=== PATIENT | female | born 1945 | race Caucasian/White ===

== ENCOUNTER 2017-11-11 11:03 | Observation (INO) | payer MEDICARE, BC ==
[~2017-11-11] VITALS: Ht 157.5 cm; Wt 47.6 kg
[2017-11-11] VITALS (10 sets, daily range): BP systolic 121–140; BP diastolic 72–92
[~2017-11-11 11:03] MED LIST: Proparacaine 0.5% Opth Soln 15ml RIGHT EYE SCH
[2017-11-11] MEDS ORDERED: Tropicamide 1% Opth 15ml Soln ONE (11:39)
[2017-11-11] MEDS ORDERED: Phenylephrine 2.5% Op 2ml Soln ONE (11:39)
[2017-11-11] MEDS ORDERED: Cyclopentolate 1% Opth Sol 2ml ONE (11:39)
[2017-11-11] MEDS ORDERED: Proparacaine 0.5% Opth Soln 15ml ONE (11:40)
[2017-11-11] MEDS: Phenylephrine 2.5% Op 2ml Soln RIGHT EYE SCH ×3 (11:44→12:11)
[2017-11-11] MEDS: Cyclopentolate 1% Opth Sol 2ml RIGHT EYE SCH ×3 (11:44→12:10)
[2017-11-11] MEDS: Tropicamide 1% Opth 15ml Soln RIGHT EYE SCH ×3 (11:44→12:11)
[2017-11-11] MEDS ORDERED: LEVETIRACETAM1000 MG ORAL (11:55)
[2017-11-11] MEDS ORDERED: TAMSULOSIN HCL0.4 MG ORAL (11:55)
[2017-11-11] MEDS ORDERED: DOCUSATE SODIU100 MG ORAL (11:55)
[2017-11-11] MEDS ORDERED: LISINOPRIL10 MG ORAL (11:55)
[2017-11-11] MEDS ORDERED: AMLODIPINE BESY10 MG ORAL (11:55)
[2017-11-11] MEDS ORDERED: HYDROCODON-ACE1 EA15 ORAL (11:55)
[2017-11-11] MEDS ORDERED: MELATONIN1 M1 SL (11:55)
[2017-11-11] MEDS ORDERED: SENNA8.6 M2 PO (11:55)
[2017-11-11] MEDS ORDERED: Lidocaine 2% MPF 5ml Vial INJ ONE (12:42)
[2017-11-11] MEDS ORDERED: Kenalog-40 1ml Vial ONE (12:42)
[2017-11-11] MEDS ORDERED: EPINEPHrine 1mg/1ml Amp ONE (12:42)
[2017-11-11] MEDS ORDERED: Pred Forte 1% Opth Susp 1ml ONE (12:43)
[2017-11-11] MEDS ORDERED: Goniosol 2.5% Opth Soln - 15ml ONE (12:43)
[2017-11-11] MEDS ORDERED: Povidone-Iodine 5% opth solution ONE (12:44)
[2017-11-11] MEDS ORDERED: BSS 500ml btl ONE (12:44)
[2017-11-11] MEDS ORDERED: Dexamethasone 4mg/ml vial ONE (12:44)
[2017-11-11] MEDS ORDERED: BSS 15ml BTL ONE (12:44)
[2017-11-11] MEDS ORDERED: Acetylcholine Injection (OR) ONE (12:45)
[2017-11-11] MEDS ORDERED: Bupivacaine 0.75% 30ml vial INJ ONE (12:45)
[2017-11-11] MEDS ORDERED: Sodium Hyaluronate 10 mg/ml 0.85ml ONE (12:45)
[2017-11-11] MEDS ORDERED: Tetracaine 0.5% Opth 4ml Soln ONE (12:45)
[2017-11-11] MEDS ORDERED: LR 1000ml ONE (13:00)
[2017-11-11] MEDS ORDERED: NS Irrig 1000ml ONE (13:00)
[2017-11-11] MEDS ORDERED: Sterile Water Irrig 1000ml IRRIG ONE (13:00)
[2017-11-11] MEDS ORDERED: Propofol 200mg/20ml IV ONE ×2 (13:03→13:48)
[2017-11-11] MEDS ORDERED: Midazolam 2mg/2ml Inj ONE (13:03)
[2017-11-11] MEDS ORDERED: Lidocaine 1% MPF 10mg/ml 5ml ONE (13:04)
--- NOTE | 2017-11-11 13:25 | Pre-Procedure Note/Attestation ---
Pre-Procedure Note/Attestation Complete Prior to Procedure Planned Procedure: right Procedure Narrative: VH plan for PPV OD Indications for Procedure Pre-Operative Diagnosis: VH plan for PPV OD Attestation I attest that I discussed the nature of the procedure; its benefits; risks and complications; and alternatives (and the risks and benefits of such alternatives ), prior to the procedure, with the patient (or the patient's legal in home sales representative). I attest that, if there was a reasonable possibility of needing a blood transfusion, the patient (or the patient's legal in home sales representative) was given the [facility] standardized written summary, pursuant to the [place] Blood Safety Act ([place] Health and Safety Code # 1645, as amended). I attest that I re-evaluated the patient just prior to the surgery and that there has been no change in the patient's H&P, except as documented below: Tej Washburn M.D., MD Nov 11, 2017 13:25
--- NOTE | 2017-11-11 13:26 | Operative Note - PDOC ---
Operative Note Operative Note Pre-op Diagnosis: VH plan for PPV OD Procedure: PPV/EL/AFE OD Post-op Diagnosis: Dense VH, possible resolved subretinal hemorrhage, peripheral retinal degeneration (?myopic degeneration), RIGHT EYE Surgeon: Wu Anesthesia: local, MAC Specimen: none Complications: none Condition: stable Estimated Blood Loss: minimal Drains: none Implant(s) used?: No Indications for Procedure Indications for the procedure: The patient has vision loss due bilateral vitreous hemorrhage and presents today for surgery after review of the risks, benefits, alternative and signing informed consent into the medical chart. Description of Procedure Procedure performed: The patient was met in the pre-operative area where informed consent was reviewed. The operative eye was verified, marked and dilated. The patient was transferred to the operative suite, where cardiopulmonary monitoring was established and RB anesthetic was administered without complications. The eye was prepped and draped in sterile ophthalmic fashion. Under microscope visualization the 23 gauge infusion line was placed 3.5 millimeters inferotemporally. After visualization of the tip in the vitreous cavity, the infusion line was turned on. The superotemporal and superonasal cannulas were placed. Under ReSight visualization, peripheral and core vitrectomy was performed. Of note, the vitreous was very dense. As the view of the posterior pole improved, there were areas of pigmentary changes and possible resolved subretinal hemorrhage. As the vitreous base was shaved, there was peripheral retinal changes possibly due to the myopic degeneration. Endolaser was applied to the superior sclerotomies and inferiorly to reduce the risk of retinal detachment. Inspection of the periphery revealed no iatrogenic breaks. Air fluid exchange was performed and additional peripheral laser was applied. The cannulas were removed and the eye maintained normal intraocular pressure. Subconjunctival vancomycin and dexamethasone were administered. The lid speculum was removed. The eye was cleaned of prep and drape. Atropine drop and Maxitrol ointment was applied. A pressure patch was placed. The patient was turned over to the anesthesia team and transferred in stable condition to the PACU. Tej Washburn M.D., MD Nov 11, 2017 13:26
[2017-11-11] MEDS ORDERED: LR 1000ml 1,000 ML IVLG SCH (13:28)
[2017-11-11] MEDS ORDERED: fentaNYL 100 mcg/2 mL IV PRN (13:30)
[2017-11-11] MEDS ORDERED: Alfentanil 2ml Inj ONE (13:41)
--- NOTE | 2017-11-11 13:55 | Anethesia Preoperative Eval ---
Anesthesia Pre-op PMH/ROS General Date of Evaluation: Nov 11, 2017 Time of Evaluation: 12:55 Anesthesiologist: Jhon ASA Score: ASA 3 Mallampati Score Class I : Soft palate, uvula, fauces, pillars visible Class II: Soft palate, uvula, fauces visible Class III: Soft palate, base of uvula visible Class IV: Only hard plate visible Mallampati Classification: Class II Surgeon: Wu Diagnosis: Vitreous hemorrhage right eye Surgical Procedure: Vitrectomy, membrane peel, endolaser Family History: no anesthesia problems Allergies: Coded Allergies: No Known Allergies (Unverified , 11/10/17) Medications: see eMAR Past Medical History Cardiovascular: Reports: HTN; Denies: CAD, [place], valve dz, arrhythmia, other Pulmonary: Denies: asthma, COPD, NATAN, other Gastrointestinal/Genitourinary: Denies: GERD, CRI, ESRD, other Neurologic/Psychiatric: Reports: other - Cerebral hemorrhage; Denies: dementia, CVA, depression/anxiety, TIA HEENT: Reports: cataract (L) Hematology/Immune: Reports: anemia; Denies: DVT, bleeding disorder, other Musculoskeletal/Integumentary: Denies: OA, RA, DJD, DDD, edema, other PMH Narrative: HTN, cerebral hemorrhage, anemia, legally blind PSxH Narrative: Cerebral artery coiling Anesthesia Pre-op Phys. Exam Physician Exam Last Vital Signs Date Time Temp Pulse Resp B/P (MAP) Pulse Ox O2 Delivery O2 Flow Rate FiO2 11/11/17 11:47 99.5 98 18 132/84 96 Room Air 99.5 Constitutional: NAD Neurologic: CN 2-12 intact - Legally blind Cardiovascular: RRR, no M/R/G Respiratory: CTA Gastrointestinal: S/NT/ND Airway Exam Mallampati Score: Class II MO: full ROM: full Teeth: intact Anesthesia Pre-op A/P Labs Anemia Studies Pre-op Studies: EKG - SR, no acute changes Risk Assessment & Plan Status Change Before Surgery: No Pre-Antibiotics Drug: None Anthony Ferreira MD Nov 11, 2017 13:55
--- NOTE | 2017-11-11 13:56 | Immediate Post-Op Evaluation ---
Immediate Post-Op Evalulation Immediate Post-Op Evalulation Procedure: Vitrectomy, membrane peel, endolaser right eye Date of Evaluation: Nov 11, 2017 Time of Evaluation: 14:41 IV Fluids: 550 Blood Pressure Systolic: 121 Blood Pressure Diastolic: 72 Pulse Rate: 91 Respiratory Rate: 17 O2 Sat by Pulse Oximetry: 100 Temperature (Fahrenheit): 99.1 Pain Score (1-10): 0 Nausea: No Vomiting: No Complications No complication Patient Status: awake, patent, none Hydration Status: adequate Drug: None Anthony Ferreira MD Nov 11, 2017 13:56
[2017-11-11] MEDS ORDERED: Maxitrol Opth Oint 3.5gm ONE (14:25)
--- NOTE | 2017-11-11 14:43 | 48 Hour Post Anesthesia Eval ---
Post Anesthesia Evaluation Procedure: Vitrectomy, membrane peel, endolaser right eye Date of Evaluation: Nov 11, 2017 Time of Evaluation: 15:00 Blood Pressure Systolic: 125 0: 73 Pulse Rate: 92 Respiratory Rate: 18 O2 Sat by Pulse Oximetry: 100 Airway: patent Nausea: No Vomiting: No Pain Intensity: 0 Hydration Status: adequate Cardiopulmonary Status: Stable Mental Status/LOC: patient returned to baseline Follow-up Care/Observations: As per surgery Post-Anesthesia Complications: No anesthetic complication Follow-up care needed: N/A Anthony Ferreira MD Nov 11, 2017 14:43
[2017-11-11] MEDS ORDERED: Norco 5mg/325mg tab ORAL PRN (16:45)
[2017-11-11] MEDS: Norco 5mg/325mg tab ORAL PRN ×2 (19:14→23:51)
--- NOTE | 2017-11-11 19:52 | Internal Med Progress Note ---
Subjective Physician Name Heber Vazquez Attending Physician Heber Vazquez MD Current Medications Medications (Trade) Dose Ordered Sig/Zunilda Route PRN Reason Start Time Stop Time Status Last Admin Dose Admin Acetaminophen/ Hydrocodone Bitart ([place] 5/325) 1 tab Q4H PRN ORAL Moderate Pain (Pain Scale 4-6) 11/11/17 16:30 11/18/17 16:29 11/11/17 19:14 Amlodipine Besylate (Norvasc) 10 mg DAILY ORAL 11/12/17 09:00 12/12/17 08:59 Levetiracetam (Keppra) 1,000 mg Q12HR ORAL 11/11/17 21:00 12/11/17 20:59 Lisinopril (Zestril) 10 mg DAILY ORAL 11/12/17 09:00 12/12/17 08:59 Tamsulosin HCl (Flomax) 0.4 mg BEDTIME ORAL 11/11/17 21:00 12/11/17 20:59 Allergies: Coded Allergies: No Known Allergies (Unverified , 11/10/17) Subjective awake, alert, responsive, NAD, C/O headache Objective Last Vital Signs Date Time Temp Pulse Resp B/P (MAP) Pulse Ox O2 Delivery O2 Flow Rate FiO2 11/11/17 19:14 98.0 11/11/17 16:48 93 18 137/81 100 Room Air General Appearance: WD/WN, no apparent distress, alert, other EENT: PERRL/EOMI, scleral icterus, other - right eye patch Neck: normal alignment, supple, normal inspection Cardiovascular: normal peripheral pulses, normal rate, regular rhythm, no gallop/murmur Respiratory/Chest: chest wall non-tender, lungs clear, normal breath sounds, no respiratory distress Abdomen: normal bowel sounds, non tender, soft Genitourinary/Rectal: other - carrillo cath Extremities: normal range of motion, non-tender, normal inspection Edema: non-pitting 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 Washburn recommendation resume prior medication from [facility] ICU IVF X 1 Liter Transfer to [facility] in AM. Heber Vazquez MD Nov 11, 2017 19:52
[2017-11-11] MEDS ORDERED: Tamsulosin 0.4mg cap ORAL SCH ×2 (21:00)
[2017-11-11] MEDS: levETIRAcetam 500mg/5ml Liquid ORAL SCH (21:08)
[2017-11-12] VITALS: BP 142/91
[2017-11-12 04:00] VITALS: BP 133/90
[2017-11-12] MEDS: Norco 5mg/325mg tab ORAL PRN (04:24)
[2017-11-12 08:00] VITALS: BP 132/83
[2017-11-12] MEDS: levETIRAcetam 500mg/5ml Liquid ORAL SCH (08:45)
[2017-11-12] MEDS ORDERED: Lisinopril 10mg tab ORAL SCH ×2 (09:00)
--- NOTE | 2017-11-12 11:46 | History & Physical ---
History and Physical History & Physicial Dictated for Int Med-Dr Vazquez no. [id number]. Fili Zepeda MD Nov 12, 2017 11:46
[2017-11-12 12:00] VITALS: BP 139/83
--- NOTE | 2017-11-12 12:09 | Consultation ---
History of Present Illness General Date patient seen: Nov 12, 2017 Present Illness HPI 72 year old female with hx of HTN, SAH, Urinary retention, bilateral vitreous hemorrhage, subretinal hemorrhage, peripheral retinal degeneration was suppose to have outpatient yesterday. Post operatively pt is admitted to medical floor for observation. Allergies: Coded Allergies: No Known Allergies (Unverified , 11/10/17) Medication History Scheduled Amlodipine Besylate* (Amlodipine Besylate*), 10 MG ORAL DAILY, (Reported) Docusate Sodium* (Docusate Sodium*), 200 MG ORAL TWICE A DAY, (Reported) Levetiracetam (Levetiracetam), 1,000 MG ORAL TWICE A DAY, (Reported) Lisinopril* (Lisinopril*), 10 MG ORAL DAILY, (Reported) Sennosides (Senna), 8.6 MG PO HS, (Reported) Tamsulosin Hcl (Tamsulosin Hcl*), 0.4 MG ORAL BEDTIME, (Reported) Scheduled PRN Hydrocodone/Acetaminophen 5-325* (Hydrocodone/Acetaminophen 5-325*), 1 TAB ORAL Q4H PRN for For Pain, (Reported) Melatonin (Melatonin), 1 MG SL BEDTIME PRN for Insomnia, (Reported) Patient History Healthcare decision maker Y Resuscitation status Advanced Directive on File No Past Medical/Surgical History Past Medical/Surgical History: (1) Hypertension (2) SAH (subarachnoid hemorrhage) Review of Systems All Other Systems: negative except mentioned in HPI Physical Exam General Appearance: WD/WN HEENT: other - right eye covered Neck: non-tender, normal alignment Respiratory/Chest: chest wall non-tender, lungs clear Breasts: no masses Cardiovascular/Chest: normal peripheral pulses Abdomen: normal bowel sounds, non tender Genitourinary/Rectal: normal genital exam, heme negative stool Extremities: normal range of motion Skin Exam: normal pigmentation 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 Last 24 Hour Vital Signs Date Time Temp Pulse Resp B/P (MAP) Pulse Ox O2 Delivery O2 Flow Rate FiO2 11/12/17 08:45 132/83 11/12/17 08:45 93 132/83 11/12/17 08:00 97.9 93 19 132/83 96 Room Air 97.9 11/12/17 04:00 98.3 98 19 133/90 97 Room Air 98.3 11/12/17 00:00 98.3 97 18 142/91 99 Room Air 98.3 11/11/17 20:00 98 103 20 140/92 96 Room Air 98.0 11/11/17 19:14 98.0 11/11/17 16:48 98 93 18 137/81 100 Room Air 98.0 11/11/17 16:00 90 18 139/86 100 Room Air 11/11/17 15:40 91 18 134/81 100 Room Air 11/11/17 15:19 95 18 139/86 100 Room Air 11/11/17 14:55 94 18 129/81 100 Room Air 11/11/17 14:43 92 18 100 11/11/17 14:41 90 18 123/77 100 Room Air 11/11/17 14:41 210.4 91 17 100 11/11/17 14:36 91 18 124/75 100 Room Air 11/11/17 14:31 99.1 91 17 121/72 100 Room Air 99.1 Intake and Output 11/11/17 11/12/17 19:00 07:00 Intake Total 500 ml Output Total 250 ml Balance 250 ml IV Total 500 ml Output Urine Total 250 ml Height (Feet): 5 Height (Inches): 2.00 Weight (Pounds): 105 Medications Current Medications Medications (Trade) Dose Ordered Sig/Zunilda Route PRN Reason Start Time Stop Time Status Last Admin Dose Admin Acetaminophen/ Hydrocodone Bitart ([place] 5/325) 1 tab Q4H PRN ORAL Moderate Pain (Pain Scale 4-6) 11/11/17 16:30 11/18/17 16:29 11/12/17 04:24 Amlodipine Besylate (Norvasc) 10 mg DAILY ORAL 11/12/17 09:00 12/12/17 08:59 11/12/17 08:45 Levetiracetam (Keppra) 1,000 mg Q12HR ORAL 11/11/17 21:00 12/11/17 20:59 11/12/17 08:45 Lisinopril (Zestril) 10 mg DAILY ORAL 11/12/17 09:00 12/12/17 08:59 11/12/17 08:45 Tamsulosin HCl (Flomax) 0.4 mg BEDTIME ORAL 11/11/17 21:00 12/11/17 20:59 11/11/17 21:09 Assessment/Plan Problem List: (1) Vitreous hemorrhage ICD Codes: H43.10 - Vitreous hemorrhage, unspecified eye SNOMED: 51208219 (2) Hypertension ICD Codes: I10 - Essential (primary) hypertension SNOMED: 66554731 (3) SAH (subarachnoid hemorrhage) ICD Codes: I60.9 - Nontraumatic subarachnoid hemorrhage, unspecified SNOMED: 085956897 Assessment/Plan symptomatic treatment post op care monitor BP case management consult for rehab dv prophylaxis Belinda Ching MD Nov 12, 2017 12:09
--- NOTE | 2017-11-12 16:30 | History and Physical Report ---
DATE OF ADMISSION: 11/11/2017 CHIEF COMPLAINT: The patient is a 72-year-old white female, who presents with chief complaint of bilateral vitreous hemorrhage. HISTORY OF PRESENT ILLNESS: The patient was admitted to [facility] from 10/23/2017 to 11/11/2017. The patient was admitted to [facility] after suffering a subarachnoid hemorrhage. The patient had bilateral vitreous hemorrhages. The patient is transferred to [facility] for right eye vitrectomy for vitreous hemorrhage. The patient presents with a chief complaint of preoperative for right vitrectomy by Dr. Nino. PAST MEDICAL HISTORY: Significant for hypertension. PAST SURGICAL HISTORY: The patient denies. CURRENT MEDICATIONS: 1. Keppra 1000 mg p.o. twice daily. 2. Flomax 0.4 mg p.o. at bedtime. 3. Tamsulosin. 4. Amlodipine 10 mg p.o. daily. 5. [place] 5/325 mg one tablet p.o. q.4 h. p.r.n. 6. Lisinopril 10 mg p.o. daily. ALLERGIES: No known drug allergies. SOCIAL HISTORY: The patient is . The patient was visiting from [place], [place]. The patient denies tobacco or alcohol use. PHYSICAL EXAMINATION: VITAL SIGNS: Temperature 98, respirations 20, pulse 93 to 103, blood pressure 132 to 142/83 to 91. GENERAL: The patient is a well-developed, well-nourished, white female, in no apparent distress. HEENT: Unable to assess. Pupils otherwise extraocular movements are intact. NECK: Supple without lymphadenopathy. CHEST: Lungs are clear to auscultation bilaterally without wheezes or rales. CARDIOVASCULAR: Regular rate. S1, S2 normal without murmurs, rubs, or gallops. Eye Exam, soft, nontender, nondistended. Positive bowel sounds. No evidence of hepatosplenomegaly. Currently, no rebound or guarding noted. EXTREMITIES: Negative for clubbing, cyanosis, or edema. RECTAL/GENITAL: Refused. NEUROLOGIC: Cranial nerves II through XII are grossly intact without focal deficits. The patient has a left hemiparesis with motor strength of 3/5 on the left and 5/5 on the right. LABORATORY DATA: Laboratory studies are pending. ASSESSMENT: This is a 72-year-old white female. 1. Bilateral vitreous hemorrhage. 2. History of subarachnoid hemorrhage. 3. Left hemiparesis. 4. Urine retention. 5. Hypertension. TREATMENT: 1. Bilateral vitreous hemorrhage. The patient is status post vitrectomy by Dr. Nino on 11/11/2017. This was performed on the right eye. The patient is scheduled to be transferred to [facility] today, 11/12/2017. 2. Subarachnoid hemorrhage. The patient has been evaluated by Neurosurgery at [facility]. We will follow recommendation of Neurosurgery. 3. Left hemiparesis. The patient will continue with physical therapy. The patient is scheduled to transfer to [facility] today, 11/12/2017. 4. Hypertension. Continue amlodipine as above. 5. Urinary retention. Continue Flomax as above. Fili Zepeda M.D. DR: BROOKE JOB#: [id number] CC:
--- NOTE | 2017-11-21 09:11 | Discharge Summary ---
Discharge Summary Hospital Course Date of Admission Nov 11, 2017 at 16:09 Date of Discharge Nov 12, 2017 at 13:30 Admitting Diagnosis vitreous hemorrhage Reason for Hospitalization: Elective surgery HPI Daniela Fajardo is a 72 year old female who was admitted on Nov 11, 2017 at 16:09 for Vitreous Hemorrhage. 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 Procedures s/p by dr Nino Vitrectomy, membrane peel, endolaser right eye Hospital Course s/p surgery pain management , pain controlled s/p IV fluids x 1 L postop care as per surgeon home medications resumed blood pressure management with current regimen, stable seizure precaution , continue Keppra, no seizure activity while in the hospital Pavon catheter, changed to leg bag prior to discharge continue Flomax patient was discharged to [facility] [place] for further management via private car patient to see surgeon prior to going to [facility] [place] FINAL DIAGNOSIS Vitreous hemorrhage. Possible resolved subretinal hemorrhage, Peripheral retinal degeneration s/p Vitrectomy, membrane peel, endolaser right eye History of subarachnoid hemorrhage. Urine retention. Hypertension. Discharge Medications Continued Medications: Amlodipine Besylate* (Amlodipine Besylate*) 10 Mg Tablet 10 MG ORAL DAILY, TAB (This prescription has been renewed) Docusate Sodium* (Docusate Sodium*) 100 Mg Capsule 200 MG ORAL TWICE A DAY, CAP (This prescription has been renewed) Hydrocodone/Acetaminophen 5-325* (Hydrocodone/Acetaminophen 5-325*) 1 Each Tablet 1 TAB ORAL Q4H PRN for For Pain, #30 TAB 0 Refills (This prescription has been renewed) Levetiracetam (Levetiracetam) 1,000 Mg Tablet 1000 MG ORAL TWICE A DAY, #60 TAB 0 Refills (This prescription has been renewed) Lisinopril* (Lisinopril*) 10 Mg Tablet 10 MG ORAL DAILY, TAB (This prescription has been renewed) Melatonin (Melatonin) 1 Mg Tab.subl 1 MG SL BEDTIME PRN for Insomnia, TAB (This prescription has been renewed) Sennosides (Senna) 8.6 Mg Tablet 8.6 MG PO HS, TAB (This prescription has been renewed) Tamsulosin Hcl (Tamsulosin Hcl*) 0.4 Mg Cap.er.24h 0.4 MG ORAL BEDTIME, CAP (This prescription has been renewed) Discharge Condition Upon Discharge: stable Discharge Disposition Patient was discharged to SNF/Subacute Facility(03) Discharge Instructions Discharge Instructions Special Instructions I have been assigned to complete a D/C Summary on this account. I was not involved in the patient management Bisi Leach NP Nov 21, 2017 09:11
== END 2017-11-12 13:30 | disposition short-term general hospital (02) ==
LOC: SUR 11:03 → 3E 16:09
DX: H43.13 Vitreous hemorrhage, bilateral (principal); I10 Essential (primary) hypertension; G81.94 Hemiplegia, unspecified affecting left nondominant side; R33.9 Retention of urine, unspecified; I60.9 Nontraumatic subarachnoid hemorrhage, unspecified; H35.40 Unspecified peripheral retinal degeneration
CPT/HCPCS: 67025; 67039; 67043; G0378 ×2; G0379; J0171; J1100; J2250; J2704; J3370; J3490 ×2; J7120; 94003; 94150

== ENCOUNTER 2018-01-06 10:38 | Day surgery (SDC) | payer MEDICARE, BC ==
[2018-01-06] VITALS (7 sets, daily range): BP systolic 101–132; BP diastolic 19–74
[~2018-01-06] VITALS: Ht 157.5 cm; Wt 47.6 kg
[~2018-01-06 10:38] MED LIST changes: +AMLODIPINE BESY10 MG ORAL; +DOCUSATE SODIU100 MG ORAL; +HYDROCODON-ACE1 EA15 ORAL; +LEVETIRACETAM1000 MG ORAL; +LISINOPRIL10 MG ORAL; +MELATONIN1 M1 SL; +Proparacaine 0.5% Opth Soln 15ml LEFT EYE SCH; -Proparacaine 0.5% Opth Soln 15ml RIGHT EYE SCH; +SENNA8.6 M2 PO; +TAMSULOSIN HCL0.4 MG ORAL
[2018-01-06] MEDS ORDERED: Phenylephrine 2.5% Op 2ml Soln ONE (11:01)
[2018-01-06] MEDS ORDERED: Cyclopentolate 1% Opth Sol 2ml ONE (11:01)
[2018-01-06] MEDS ORDERED: Tropicamide 1% Opth 15ml Soln ONE (11:01)
[2018-01-06] MEDS ORDERED: Proparacaine 0.5% Opth Soln 15ml ONE (11:03)
[2018-01-06] MEDS: Tropicamide 1% Opth 15ml Soln LEFT EYE SCH ×3 (11:20→11:40)
[2018-01-06] MEDS: Cyclopentolate 1% Opth Sol 2ml LEFT EYE SCH ×3 (11:20→11:40)
[2018-01-06] MEDS: Phenylephrine 2.5% Op 2ml Soln LEFT EYE SCH ×3 (11:20→11:40)
[2018-01-06] MEDS ORDERED: Bupivacaine 0.75% 30ml vial INJ ONE (11:52)
[2018-01-06] MEDS ORDERED: BSS 500ml btl ONE (11:52)
[2018-01-06] MEDS ORDERED: Povidone-Iodine 5% opth solution ONE (11:52)
[2018-01-06] MEDS ORDERED: Lidocaine 2% MPF 5ml Vial INJ ONE (11:52)
[2018-01-06] MEDS ORDERED: Dexamethasone 4mg/ml vial ONE (11:52)
[2018-01-06] MEDS ORDERED: BSS 15ml BTL ONE (11:52)
[2018-01-06] MEDS ORDERED: Pred Forte 1% Opth Susp 1ml ONE (11:52)
[2018-01-06] MEDS ORDERED: Maxitrol Opth Oint 3.5gm ONE (11:52)
[2018-01-06] MEDS ORDERED: Goniosol 2.5% Opth Soln - 15ml ONE (11:52)
[2018-01-06] MEDS ORDERED: Tetracaine 0.5% Opth 4ml Soln ONE (11:52)
--- NOTE | 2018-01-06 12:30 | Pre-Procedure Note/Attestation ---
Pre-Procedure Note/Attestation Complete Prior to Procedure Planned Procedure: left Procedure Narrative: VH OS Indications for Procedure Pre-Operative Diagnosis: VH OS Attestation I attest that I discussed the nature of the procedure; its benefits; risks and complications; and alternatives (and the risks and benefits of such alternatives ), prior to the procedure, with the patient (or the patient's legal patient accounting representative). I attest that, if there was a reasonable possibility of needing a blood transfusion, the patient (or the patient's legal patient accounting representative) was given the [facility] standardized written summary, pursuant to the [place] Blood Safety Act ([place] Health and Safety Code # 1645, as amended). I attest that I re-evaluated the patient just prior to the surgery and that there has been no change in the patient's H&P, except as documented below: Tej Washburn M.D., MD Jan 06, 2018 12:30
--- NOTE | 2018-01-06 12:30 | Operative Note - PDOC ---
Operative Note Operative Note Date of Operation/Procedure: Jan 06, 2018 Pre-op Diagnosis: Dense vitreous hemorrhage, LEFT EYE Procedure: Pars plana vitrectomy, peripheral endolaser, air-fluid exchange, LEFT EYE Post-op Diagnosis: Dense VH, possible resolved subretinal hemorrhage, peripheral retinal degeneration and drusen, LEFT EYE Surgeon: Wu Anesthesia: local Specimen: none Complications: none Condition: stable Estimated Blood Loss: minimal Drains: none Implant(s) used?: No Indications for Procedure Indications for the procedure: The patient has vision loss due bilateral vitreous hemorrhage and presents today for surgery after review of the risks, benefits, alternative and signing informed consent into the medical chart. Description of Procedure Procedure performed: The patient was met in the pre-operative area where informed consent was reviewed. The operative eye was verified, marked and dilated. The patient was transferred to the operative suite, where cardiopulmonary monitoring was established and PB anesthetic was administered without complications. The eye was prepped and draped in sterile ophthalmic fashion. Under microscope visualization the 23 gauge infusion line was placed 3.5 millimeters inferotemporally. After visualization of the tip in the vitreous cavity, the infusion line was turned on. The superotemporal and superonasal cannulas were placed. Under ReSight visualization, peripheral and core vitrectomy was performed. Of note, the vitreous was very dense. As the view of the posterior pole improved, there were areas of pigmentary changes and possible small areas of resolved subretinal hemorrhage. As the vitreous base was shaved, there was peripheral retinal changes possibly due to the myopic degeneration. Endolaser was applied to the superior sclerotomies to reduce the risk of retinal detachment. Inspection of the periphery revealed no iatrogenic breaks. Air fluid exchange was performed and additional peripheral laser was applied. The cannulas were removed and the eye maintained normal intraocular pressure. Subconjunctival vancomycin and dexamethasone were administered. The lid speculum was removed. The eye was cleaned of prep and drape. Atropine drop and Maxitrol ointment was applied. A pressure patch was placed. The patient was turned over to the anesthesia team and transferred in stable condition to the PACU. Tej Washburn M.D., MD Jan 06, 2018 12:30
[2018-01-06] MEDS ORDERED: Sterile Water Irrig 1000ml IRRIG ONE (13:30)
[2018-01-06] MEDS ORDERED: NS Irrig 1000ml ONE (13:30)
[2018-01-06] MEDS ORDERED: LR 1000ml ONE (13:30)
[2018-01-06] MEDS ORDERED: LR 1000ml 1,000 ML IVLG SCH ×2 (13:37→13:54)
[2018-01-06] MEDS ORDERED: Midazolam 2mg/2ml Inj ONE (13:41)
[2018-01-06] MEDS ORDERED: fentaNYL 100 mcg/2 mL IV ONE (13:44)
[2018-01-06] MEDS ORDERED: fentaNYL 100 mcg/2 mL IV PRN (13:45)
--- NOTE | 2018-01-06 13:58 | Anethesia Preoperative Eval ---
Anesthesia Pre-op PMH/ROS General Date of Evaluation: Jan 06, 2018 Time of Evaluation: 13:26 Anesthesiologist: Jhon ASA Score: ASA 3 Mallampati Score Class I : Soft palate, uvula, fauces, pillars visible Class II: Soft palate, uvula, fauces visible Class III: Soft palate, base of uvula visible Class IV: Only hard plate visible Mallampati Classification: Class II Surgeon: Wu Diagnosis: Vitreous hemorrhage Surgical Procedure: Vitrectomy left eye Family History: no anesthesia problems Allergies: Coded Allergies: No Known Allergies (Unverified , 01/06/18) Medications: see eMAR Past Medical History Cardiovascular: Reports: HTN; Denies: CAD, [place], valve dz, arrhythmia, other Pulmonary: Denies: asthma, COPD, NATAN, other Gastrointestinal/Genitourinary: Denies: GERD, CRI, ESRD, other Neurologic/Psychiatric: Reports: CVA; Denies: dementia, depression/anxiety, TIA, other Endocrine: Denies: DM, hypothyroidism, steroids, other HEENT: Denies: cataract (L), cataract (R), glaucoma, BELKOFSKI (L), BELKOFSKI (R), other Hematology/Immune: Denies: anemia, DVT, bleeding disorder, other Musculoskeletal/Integumentary: Denies: OA, RA, DJD, DDD, edema, other PMH Narrative: Cerebral hemorrhage, HTN PSxH Narrative: Coil embolization, vitrectomy Anesthesia Pre-op Phys. Exam Physician Exam Last Vital Signs Date Time Temp Pulse Resp B/P (MAP) Pulse Ox O2 Delivery O2 Flow Rate FiO2 01/06/18 11:25 Room Air 01/06/18 11:15 98.0 72 18 132/74 (93) 99 98.0 Constitutional: NAD Neurologic: CN 2-12 intact Cardiovascular: RRR, no M/R/G Respiratory: CTA Gastrointestinal: S/NT/ND Airway Exam Mallampati Score: Class II MO: full ROM: full Teeth: intact Anesthesia Pre-op A/P Studies Pre-op Studies: EKG - sr Risk Assessment & Plan Assessment: Class 3 patient with h/o cerebral hemorrhage now for vitrectomy left eye Plan: MAC Status Change Before Surgery: No Pre-Antibiotics Drug: None Anthony Ferreira MD Jan 06, 2018 13:58
--- NOTE | 2018-01-06 13:59 | Immediate Post-Op Evaluation ---
Immediate Post-Op Evalulation Immediate Post-Op Evalulation Procedure: Vidtrectomy left eye Date of Evaluation: Jan 06, 2018 Time of Evaluation: 14:35 IV Fluids: 600 Blood Pressure Systolic: 105 Blood Pressure Diastolic: 64 Pulse Rate: 68 Respiratory Rate: 12 O2 Sat by Pulse Oximetry: 100 Temperature (Fahrenheit): 98.5 Pain Score (1-10): 0 Nausea: No Vomiting: No Patient Status: awake, patent, none Hydration Status: adequate Drug: None Anthony Ferreira MD Jan 06, 2018 13:59
--- NOTE | 2018-01-06 14:31 | 48 Hour Post Anesthesia Eval ---
Post Anesthesia Evaluation Procedure: Vidtrectomy left eye Date of Evaluation: Jan 06, 2018 Time of Evaluation: 15:00 Blood Pressure Systolic: 111 0: 66 Pulse Rate: 66 Respiratory Rate: 20 O2 Sat by Pulse Oximetry: 99 Airway: patent Nausea: No Vomiting: No Pain Intensity: 0 Hydration Status: adequate Cardiopulmonary Status: Stable Mental Status/LOC: patient returned to baseline Follow-up Care/Observations: As per surgery Post-Anesthesia Complications: No anesthetic complication Follow-up care needed: N/A Anthony Ferreira MD Jan 06, 2018 14:31
== END 2018-01-06 15:50 | disposition home or self-care (01) ==
LOC: SUR 10:38
DX: H43.12 Vitreous hemorrhage, left eye (principal); H35.62 Retinal hemorrhage, left eye; I60.31 Nontraumatic subarachnoid hemorrhage from right posterior communicating artery; H35.033 Hypertensive retinopathy, bilateral; I10 Essential (primary) hypertension; E78.5 Hyperlipidemia, unspecified; I25.10 Atherosclerotic heart disease of native coronary artery without angina pectoris; E78.00 Pure hypercholesterolemia, unspecified; R94.31 Abnormal electrocardiogram [ECG] [EKG]; Z86.73 Personal history of transient ischemic attack (TIA), and cerebral infarction without residual deficits; Z82.49 Family history of ischemic heart disease and other diseases of the circulatory system
CPT/HCPCS: 67039; J1100; J2250; J3010; J3370; J3490; J7120; 94003; 94150